=== PATIENT | female | born 1945 | race Caucasian/White ===

== ENCOUNTER 2022-06-24 07:42 | Inpatient (IN) | payer OTHER, MEDICAID ==
[~2022-06-24] VITALS: Ht 162.6 cm; Wt 41.0 kg
[2022-06-24 08:57] LABS: Basophils # (auto) 0 10 ^3/uL (0-0.2); Basophils % (auto) 0.9 % (0.0-2.0); Eosinophils # (auto) 0 10 ^3/uL (0-0.8); Hematocrit 40.7 % (36.0-46.0); Hemoglobin 13.4 g/dL (12.2-16.2); Lymphocytes # (auto) 0.7 10 ^3/uL (0.4-5.4); Lymphocytes % (auto) 21.8 % (10.0-50.0); Mean Corpuscular Hemoglobin 27.8 pg (28.0-32.0); Mean Corpuscular Hgb Conc. 32.9 g/dL (32.0-36.0); Mean Corpuscular Volume 84.5 fL (80.0-100.0); Monocytes # (auto) 0.5 10 ^3/uL (0-1.3); Monocytes % (auto) 15.2 % (0.0-12.0); Neutrophils % (auto) 62.1 % (37.0-80.0); Nucleated Red Blood Cells % 0.3 %; Red Blood Cells 4.81 10^6/uL (4.0-5.20); Red Cell Distribution Width 14.8 % (11.8-14.3); White Blood Cell 3.3 10^3/uL (4.4-10.8)
[2022-06-24 09:23] LABS: Albumin 2.8 g/dL (3.4-5.0); Calcium 9.5 mg/dL (8.5-10.1); Potassium 4.1 mmol/L (3.5-5.1)
[2022-06-24 09:26] LABS: BUN/Creatinine Ratio 23.4; Bilirubin, Total 0.3 mg/dL (0.2-1.0); Total Protein 7.3 g/dL (6.4-8.2)
[2022-06-24] MEDS ORDERED: cloNIDine HCL 0.1 MG TAB PO ONE (09:30)
[2022-06-24 10:47] LABS: Urine Bacteria NONE SEEN /hpf (None Seen); Urine Blood TRACE /uL (Negative); Urine Hyaline Cast FEW /lpf (0 - 2); Urine Specific Gravity 1.015 (1.001-1.035); Urine WBC 3 /hpf (0 - 5)
[2022-06-24] MEDS ORDERED: ZINC SULFATE 220mg CAP or TAB PO ONE (11:15)
[2022-06-24] MEDS ORDERED: AZITHROMYCIN 500MG/ 250ML 250 ML IV ONE (11:15)
[2022-06-24] MEDS ORDERED: CHOLECALCIFEROL (VITD3) 2,000 UNIT CAP/TAB PO ONE (11:15)
[2022-06-24] MEDS ORDERED: ASCORBIC ACID 500 MG TAB PO ONE (11:15)
[2022-06-24] MEDS ORDERED: NITROGLYCERIN 0.4 MG SL TAB SL PRN (13:30)
[2022-06-24] MEDS ORDERED: REMDESIVIR PER PHARMACY 0 ML IV SCH (13:30)
[2022-06-24] MEDS ORDERED: DOCUSATE SOD 100 MG CAP PO PRN (13:30)
[2022-06-24] MEDS: SODIUM CHLORIDE 0.9% 1,000 ML IV SCH (13:59)
[2022-06-24] MEDS ORDERED: PANTOPRAZOLE 40 MG/10 ML VIAL INJ IV ONE (14:00)
[2022-06-24 14:03] LABS: Magnesium 2.1 mg/dL (1.6-2.6)
[2022-06-24 14:12] LABS: CRP High Sensitivity 4.24 mg/dL (< 0.3)
[2022-06-24] MEDS: ONDANSETRON HCL 4 MG/2 ML VIAL IV PRN (14:47)
[2022-06-24] MEDS: MORPHINE SULFATE INJ 2 MG/ml SYRG IV PRN (14:49)
[2022-06-24] MEDS ORDERED: REMDESIVIR 100mg 100 MG in SODIUM CHL 0.9% 230 ML IV SCH (15:00)
[2022-06-24] MEDS ORDERED: REMDESIVIR 200 MG in NS 210ml LOADING DOSE ADULT IV ONE (15:00)
[2022-06-24] MEDS: IPRATROPIUM BROM 0.5 MG/2.5ML INH SOL NEB SCH (19:41)
[2022-06-24] MEDS: ALBUTEROL SULF 2.5 MG/0.5ML(0.5%) NEB SOLN NEB SCH (19:41)
[2022-06-25] MEDS: ONDANSETRON HCL 4 MG/2 ML VIAL IV PRN (04:15)
[2022-06-25] MEDS: MORPHINE SULFATE INJ 2 MG/ml SYRG IV PRN (04:16)
[2022-06-25 04:44] LABS: Basophils # (auto) 0 10 ^3/uL (0-0.2); Basophils % (auto) 0.4 % (0.0-2.0); Eosinophils # (auto) 0 10 ^3/uL (0-0.8); Hematocrit 37.7 % (36.0-46.0); Hemoglobin 12.4 g/dL (12.2-16.2); Lymphocytes # (auto) 1.1 10 ^3/uL (0.4-5.4); Lymphocytes % (auto) 15.2 % (10.0-50.0); Mean Corpuscular Hemoglobin 27.9 pg (28.0-32.0); Mean Corpuscular Hgb Conc. 32.8 g/dL (32.0-36.0); Monocytes # (auto) 1.1 10 ^3/uL (0-1.3); Monocytes % (auto) 14.6 % (0.0-12.0); Neutrophils # (auto) 5.2 10 ^3/uL (1.6-8.6); Neutrophils % (auto) 69.8 % (37.0-80.0); Red Blood Cells 4.44 10^6/uL (4.0-5.20); Red Cell Distribution Width 15.3 % (11.8-14.3); White Blood Cell 7.4 10^3/uL (4.4-10.8)
[2022-06-25 05:07] LABS: Potassium 4.2 mmol/L (3.5-5.1)
[2022-06-25 05:12] LABS: Albumin 2.3 g/dL (3.4-5.0); Calcium 8.8 mg/dL (8.5-10.1); Magnesium 2.1 mg/dL (1.6-2.6)
[2022-06-25 05:14] LABS: Bilirubin, Total 0.3 mg/dL (0.2-1.0); Total Protein 5.5 g/dL (6.4-8.2)
[2022-06-25] MEDS: ALBUTEROL SULF 2.5 MG/0.5ML(0.5%) NEB SOLN NEB SCH ×3 (06:24→18:26)
[2022-06-25] MEDS: IPRATROPIUM BROM 0.5 MG/2.5ML INH SOL NEB SCH ×3 (06:24→18:26)
[2022-06-25] MEDS: SODIUM CHLORIDE 0.9% 1,000 ML IV SCH ×2 (06:36→22:50)
[2022-06-25] MEDS: HYDROcodone-ACET 5/325MG TAB PO PRN (08:18)
[2022-06-25] MEDS ORDERED: PANTOPRAZOLE 40 MG/10 ML VIAL INJ IV SCH (10:00)
[2022-06-25] MEDS: DexAMETHasone SOD PHOS 10MG/1ML VIAL INJ IV SCH (10:57)
[2022-06-25] MEDS: ZINC SULFATE 220mg CAP or TAB PO SCH (10:58)
[2022-06-25] MEDS: ENOXAPARIN SOD 30 MG/0.3 ML SYRINGE SC SCH (10:58)
[2022-06-25] MEDS: ASCORBIC ACID 1,000 MG TAB PO SCH (10:58)
[2022-06-25] MEDS: CHOLECALCIFEROL (VITD3) 2,000 UNIT CAP/TAB PO SCH (10:58)
[2022-06-25] MEDS: AZITHROMYCIN 500MG/ 250ML 250 ML IV SCH (10:59)
[2022-06-25] MEDS ORDERED: hydrALAZINE HCL 20 MG/ML VL IV PRN (11:15)
[2022-06-25] MEDS: NIFEdipine ER 30 MG TAB PO SCH (11:27)
[2022-06-25 13:07] VITALS: BP 161/85
[2022-06-25] MEDS: REMDESIVIR 100mg 100 MG in SODIUM CHL 0.9% 230 ML IV SCH (15:18)
[2022-06-25 16:15] VITALS: BP 166/82
[2022-06-25 17:46] VITALS: BP 166/82
[2022-06-25 17:47] VITALS: BP 166/82
[2022-06-25 18:58] VITALS: BP 132/68
[2022-06-25] MEDS: FAMOTIDINE 20 MG TAB PO SCH (21:48)
[2022-06-25 22:07] VITALS: BP 114/68
[2022-06-26 04:56] VITALS: BP 102/56
[2022-06-26] MEDS: IPRATROPIUM BROM 0.5 MG/2.5ML INH SOL NEB SCH ×3 (05:57→20:16)
[2022-06-26] MEDS: ALBUTEROL SULF 2.5 MG/0.5ML(0.5%) NEB SOLN NEB SCH ×3 (05:57→20:15)
[2022-06-26] MEDS: SODIUM CHLORIDE 0.9% 1,000 ML IV SCH (06:20)
[2022-06-26 07:39] LABS: Albumin 2.1 g/dL (3.4-5.0); BUN/Creatinine Ratio 37.5; Calcium 8.9 mg/dL (8.5-10.1); Potassium 4.1 mmol/L (3.5-5.1)
[2022-06-26 07:42] LABS: Bilirubin, Total 0.2 mg/dL (0.2-1.0); Total Protein 5.4 g/dL (6.4-8.2)
[2022-06-26 09:20] VITALS: BP 188/163
[2022-06-26] MEDS: AZITHROMYCIN 500MG/ 250ML 250 ML IV SCH (10:27)
[2022-06-26] MEDS: CHOLECALCIFEROL (VITD3) 2,000 UNIT CAP/TAB PO SCH (10:27)
[2022-06-26] MEDS: ZINC SULFATE 220mg CAP or TAB PO SCH (10:27)
[2022-06-26] MEDS: ASCORBIC ACID 1,000 MG TAB PO SCH (10:27)
[2022-06-26] MEDS: DexAMETHasone SOD PHOS 10MG/1ML VIAL INJ IV SCH (10:31)
[2022-06-26] MEDS: FUROSEMIDE 20 MG/2 ML VIAL IV SCH (10:31)
[2022-06-26] MEDS: ENOXAPARIN SOD 30 MG/0.3 ML SYRINGE SC SCH (10:32)
[2022-06-26] MEDS: NIFEdipine ER 30 MG TAB PO SCH (10:32)
[2022-06-26 11:40] LABS: Folate (Folic Acid) 12.87 ng/mL (5.38-24)
[2022-06-26] MEDS ORDERED: IOHEXOL 350 MG/ML 100ML IJ ONE (11:41)
[2022-06-26 12:27] VITALS: BP 103/52
[2022-06-26] MEDS: REMDESIVIR 100mg 100 MG in SODIUM CHL 0.9% 230 ML IV SCH (15:35)
[2022-06-26 17:00] VITALS: BP 95/53
[2022-06-26] MEDS: FAMOTIDINE 20 MG TAB PO SCH (21:43)
[2022-06-27 06:59] LABS: Potassium 3.3 mmol/L (3.5-5.1)
[2022-06-27] MEDS: IPRATROPIUM BROM 0.5 MG/2.5ML INH SOL NEB SCH ×3 (06:59→12:05)
[2022-06-27] MEDS: ALBUTEROL SULF 2.5 MG/0.5ML(0.5%) NEB SOLN NEB SCH ×3 (06:59→18:00)
[2022-06-27 07:39] LABS: BUN/Creatinine Ratio 47.2; Calcium 8.7 mg/dL (8.5-10.1)
[2022-06-27 07:40] LABS: Albumin 2.4 g/dL (3.4-5.0); Bilirubin, Total 0.2 mg/dL (0.2-1.0); Total Protein 5.3 g/dL (6.4-8.2)
[2022-06-27] MEDS: ZINC SULFATE 220mg CAP or TAB PO SCH (09:26)
[2022-06-27] MEDS: NIFEdipine ER 30 MG TAB PO SCH (09:26)
[2022-06-27] MEDS: ASCORBIC ACID 1,000 MG TAB PO SCH (09:27)
[2022-06-27] MEDS: HYDROcodone-ACET 5/325MG TAB PO PRN (09:27)
[2022-06-27] MEDS: AZITHROMYCIN 500MG/ 250ML 250 ML IV SCH (09:27)
[2022-06-27] MEDS: DexAMETHasone SOD PHOS 10MG/1ML VIAL INJ IV SCH (09:28)
[2022-06-27] MEDS: FUROSEMIDE 20 MG/2 ML VIAL IV SCH (09:28)
[2022-06-27] MEDS: cefTRIAXone 1GM/50ML D5W 50 ML IV SCH ×2 (09:29→10:29)
[2022-06-27] MEDS: ENOXAPARIN SOD 30 MG/0.3 ML SYRINGE SC SCH (09:38)
[2022-06-27] MEDS ORDERED: POTASSIUM CHL 20 Meq TABLET PO ONE (09:45)
[2022-06-27] MEDS ORDERED: ERGOCALCIFEROL 50,000 UNIT(1.25MG) CAP PO SCH (10:00)
[2022-06-27] MEDS: REMDESIVIR 100mg 100 MG in SODIUM CHL 0.9% 230 ML IV SCH (15:46)
[2022-06-27] MEDS: FAMOTIDINE 20 MG TAB PO SCH (21:55)
[2022-06-27 22:00] VITALS: BP 105/54
[2022-06-28 05:19] VITALS: BP 102/61
[2022-06-28 05:30] LABS: Basophils # (auto) 0 10 ^3/uL (0-0.2); Basophils % (auto) 0.1 % (0.0-2.0); Eosinophils # (auto) 0 10 ^3/uL (0-0.8); Hemoglobin 11.4 g/dL (12.2-16.2); Lymphocytes # (auto) 1.3 10 ^3/uL (0.4-5.4); Lymphocytes % (auto) 14.7 % (10.0-50.0); Mean Corpuscular Hemoglobin 27.9 pg (28.0-32.0); Mean Corpuscular Hgb Conc. 33.6 g/dL (32.0-36.0); Mean Corpuscular Volume 83.1 fL (80.0-100.0); Monocytes # (auto) 0.8 10 ^3/uL (0-1.3); Monocytes % (auto) 8.3 % (0.0-12.0); Neutrophils % (auto) 76.9 % (37.0-80.0); Red Blood Cells 4.09 10^6/uL (4.0-5.20); Red Cell Distribution Width 14.7 % (11.8-14.3); White Blood Cell 9.1 10^3/uL (4.4-10.8)
[2022-06-28 05:31] LABS: Albumin 2.4 g/dL (3.4-5.0); Calcium 8.7 mg/dL (8.5-10.1); Potassium 3.5 mmol/L (3.5-5.1)
[2022-06-28 05:35] LABS: BUN/Creatinine Ratio 42.1; Bilirubin, Total 0.4 mg/dL (0.2-1.0); Total Protein 5.3 g/dL (6.4-8.2)
[2022-06-28] MEDS: IPRATROPIUM BROM 0.5 MG/2.5ML INH SOL NEB SCH ×3 (05:56→19:53)
[2022-06-28] MEDS: ALBUTEROL SULF 2.5 MG/0.5ML(0.5%) NEB SOLN NEB SCH ×3 (05:57→19:53)
[2022-06-28 08:42] VITALS: BP 105/54
[2022-06-28] MEDS: AZITHROMYCIN 500MG/ 250ML 250 ML IV SCH (08:57)
[2022-06-28] MEDS: cefTRIAXone 1GM/50ML D5W 50 ML IV SCH (08:57)
[2022-06-28] MEDS: ASCORBIC ACID 1,000 MG TAB PO SCH (08:58)
[2022-06-28] MEDS: ZINC SULFATE 220mg CAP or TAB PO SCH (08:58)
[2022-06-28] MEDS: ENOXAPARIN SOD 30 MG/0.3 ML SYRINGE SC SCH (08:58)
[2022-06-28] MEDS: DexAMETHasone SOD PHOS 10MG/1ML VIAL INJ IV SCH (08:58)
[2022-06-28] MEDS: FUROSEMIDE 20 MG/2 ML VIAL IV SCH (09:09)
[2022-06-28] MEDS: NIFEdipine ER 30 MG TAB PO SCH (09:10)
[2022-06-28] MEDS: HYDROcodone-ACET 5/325MG TAB PO PRN (09:36)
[2022-06-28] MEDS ORDERED: POTASSIUM CHL 20 Meq TABLET PO ONE (12:00)
[2022-06-28] MEDS: REMDESIVIR 100mg 100 MG in SODIUM CHL 0.9% 230 ML IV SCH (16:35)
[2022-06-28] MEDS: Ensure Enlive Chocolate 8oz Bottle PO SCH ×2 (18:03→21:31)
[2022-06-28] MEDS: FAMOTIDINE 20 MG TAB PO SCH (21:32)
[2022-06-28 22:00] VITALS: BP 118/64
[2022-06-29 05:00] VITALS: BP 137/75
[2022-06-29] MEDS: Ensure Enlive Chocolate 8oz Bottle PO SCH ×4 (05:38→22:00)
[2022-06-29] MEDS: IPRATROPIUM BROM 0.5 MG/2.5ML INH SOL NEB SCH ×3 (06:58→19:36)
[2022-06-29] MEDS: ALBUTEROL SULF 2.5 MG/0.5ML(0.5%) NEB SOLN NEB SCH ×3 (06:58→19:36)
[2022-06-29] MEDS: HYDROcodone-ACET 5/325MG TAB PO PRN (08:48)
[2022-06-29 09:00] VITALS: BP 133/71
[2022-06-29] MEDS: ZINC SULFATE 220mg CAP or TAB PO SCH (09:44)
[2022-06-29] MEDS: cefTRIAXone 1GM/50ML D5W 50 ML IV SCH (09:45)
[2022-06-29] MEDS: ENOXAPARIN SOD 30 MG/0.3 ML SYRINGE SC SCH (09:45)
[2022-06-29] MEDS: DexAMETHasone SOD PHOS 10MG/1ML VIAL INJ IV SCH (09:45)
[2022-06-29] MEDS: FUROSEMIDE 20 MG/2 ML VIAL IV SCH (09:45)
[2022-06-29] MEDS: ASCORBIC ACID 1,000 MG TAB PO SCH (09:45)
[2022-06-29] MEDS: NIFEdipine ER 30 MG TAB PO SCH (09:46)
[2022-06-29] MEDS: AZITHROMYCIN 500MG/ 250ML 250 ML IV SCH (10:00)
[2022-06-29 13:00] VITALS: BP 99/61
[2022-06-29] MEDS ORDERED: FUROSEMIDE 20 MG/2 ML VIAL IV ONE (13:45)
[2022-06-29 17:00] VITALS: BP 106/61
[2022-06-29 18:38] VITALS: BP 99/61
[2022-06-29] MEDS: FAMOTIDINE 20 MG TAB PO SCH (22:37)
[2022-06-29 23:00] VITALS: BP 109/60
[2022-06-30 05:00] VITALS: BP 139/79
[2022-06-30] MEDS: Ensure Enlive Chocolate 8oz Bottle PO SCH (05:48)
[2022-06-30] MEDS: ALBUTEROL SULF 2.5 MG/0.5ML(0.5%) NEB SOLN NEB SCH (06:12)
[2022-06-30] MEDS: IPRATROPIUM BROM 0.5 MG/2.5ML INH SOL NEB SCH (06:12)
[2022-06-30] MEDS: ENOXAPARIN SOD 30 MG/0.3 ML SYRINGE SC SCH (10:00)
[2022-06-30] MEDS: NIFEdipine ER 30 MG TAB PO SCH (10:00)
[2022-06-30] MEDS: ASCORBIC ACID 1,000 MG TAB PO SCH (10:00)
[2022-06-30] MEDS: ZINC SULFATE 220mg CAP or TAB PO SCH (10:00)
[2022-06-30] MEDS: cefTRIAXone 1GM/50ML D5W 50 ML IV SCH (10:00)
[2022-06-30] MEDS: FUROSEMIDE 20 MG/2 ML VIAL IV SCH (10:00)
[2022-06-30] MEDS: DexAMETHasone SOD PHOS 10MG/1ML VIAL INJ IV SCH (10:00)
== END 2022-06-30 13:26 | disposition home health service (06) | DRG 177 ==
LOC: EDBD 07:42 → ER 07:42 → TELE 13:36 → TELE-CENTR 06-25 16:25
PROVIDERS: ADMIT Nurse Practitioner Family; ATTEND Internal Medicine
PROC: XW033E5 Introduction of Remdesivir Anti-infective into Peripheral Vein, Percutaneous Approach, New Technology Group 5 (ICD-10-PCS; principal; 2022-06-25)
DX: U07.1 COVID-19 (principal); J96.01 Acute respiratory failure with hypoxia; E44.0 Moderate protein-calorie malnutrition; Z68.1 Body mass index [BMI] 19.9 or less, adult; I10 Essential (primary) hypertension; I71.21 Aneurysm of the ascending aorta, without rupture; I71.43 Infrarenal abdominal aortic aneurysm, without rupture; J43.9 Emphysema, unspecified; R62.7 Adult failure to thrive; F03.90 Unspecified dementia, unspecified severity, without behavioral disturbance, psychotic disturbance, mood disturbance, and anxiety; I71.23 Aneurysm of the descending thoracic aorta, without rupture; M25.552 Pain in left hip; R79.89 Other specified abnormal findings of blood chemistry; Z74.01 Bed confinement status; Z23 Encounter for immunization; Z88.0 Allergy status to penicillin
CPT/HCPCS: 36415; 36600; 71045; 71275; 73502; 80053; 81001; 82306; 82607; 82746; 82805; 83036; 83605; 83615; 83735; 84443; 85025; 85379; 86141; 87040; 87426; 93970; 94640; 96365; 97110; 97163; C9113; G0378; J0696; J1100; J2405